=== PATIENT | female | born 1980 | race Caucasian/White ===

== ENCOUNTER 2017-09-20 12:27 | Emergency (ER) | payer MEDICAID, BC ==
[2017-09-20] MEDS: ONDANSETRON 4 MG INJ IV (17:05)
[2017-09-20] MEDS: HYDROmorphONE 1 MG/ML SYG IV ×2 (17:05→19:46)
[2017-09-20 17:18] LABS: ADD MAN DIFF? NO
[2017-09-20 17:23] LABS: BASOPHIL # 0.1 10^3/ul (0.0-0.1); BASOPHILS % 0.5 % (0.0-2.0); EOSINOPHILS # 0.4 10^3/ul (0.0-0.5); EOSINOPHILS % 2.5 % (0.0-7.0); HEMOGLOBIN 14.3 g/dl (12.0-16.0); LYMPHOCYTES # 3.5 10^3/ul (0.8-2.9); LYMPHOCYTES % 23.3 % (15.0-51.0); MEAN CORPUSCULAR HEMOGLOBIN 27.8 pg (29.0-33.0); MEAN CORPUSCULAR HGB CONC 32.5 g/dl (32.0-37.0); MEAN CORPUSCULAR VOLUME 85.4 fl (82.0-101.0); MEAN PLATELET VOLUME 9.9 fl (7.4-10.4); MONOCYTE # 0.8 10^3/ul (0.3-0.9); NEUTROPHIL # 10.2 10^3/ul (1.6-7.5); NEUTROPHILS % 68.2 % (39.0-77.0); PLATELET COUNT 418 10^3/UL (140-415); RED BLOOD COUNT 5.15 10^6/ul (4.20-5.40); RED CELL DISTRIBUTION WIDTH 14.1 % (11.5-14.5)
[2017-09-20 17:34] LABS: PROTIME 12.2 Sec (11.9-14.9)
[2017-09-20 17:35] LABS: PARTIAL THROMBOPLASTIN TIME 26.8 Sec (25.0-35.0)
[2017-09-20 17:39] LABS: ALANINE AMINOTRANSFERASE 47 IU/L (13-69); ALBUMIN/GLOBULIN RATIO 1.25; ALKALINE PHOSPHATASE 69 IU/L (42-121); ANION GAP 17 (8-16); ASPARTATE AMINO TRANSFERASE 37 IU/L (15-46); BILIRUBIN,INDIRECT 0.2 mg/dl (0-1.1); BILIRUBIN,TOTAL 0.2 mg/dl (0.2-1.3); BLOOD UREA NITROGEN 9 mg/dl (7-20); CALCIUM 10.1 mg/dl (8.4-10.2); CARBON DIOXIDE 26 mmol/L (21-31); CHLORIDE 103 mmol/L (97-110); CREATININE 0.67 mg/dl (0.44-1.00); GLUCOSE 102 mg/dl (70-220); POTASSIUM 4.1 mmol/L (3.5-5.1); SODIUM 142 mmol/L (135-144)
[2017-09-20 17:51] LABS: TROPONIN-I < 0.012 ng/ml (0.00-0.12)
[2017-09-20] MEDS: IOHEXOL 300MG/ML 150 ML BTL (17:57)
[2017-09-20] MEDS: SOD CHLORIDE 0.9% 100 ML (17:57)
== END 2017-09-20 20:07 | disposition home or self-care (01) ==
LOC: FTE 12:27
DX: K60.4 Rectal fistula (principal); K64.9 Unspecified hemorrhoids; R19.5 Other fecal abnormalities; R07.9 Chest pain, unspecified
CPT/HCPCS: 36415; 74177; 80053; 84484; 85025; 85610; 85730; 86850; 86900; 86901; 93005; 96374; 96375; 96376; 99285-25

== ENCOUNTER 2017-11-14 10:38 | Day surgery (SDC) | payer OTHER ==
[~2017-11-14 10:38] MED LIST: CEFAZOLIN 2 GM/50 ML (PMX) 50 ML IVPB; SOD CHLORIDE 0.9% 1,000 ML IV
[2017-11-14] MEDS ORDERED: PROPOFOL 20 ML (12:05)
[2017-11-14] MEDS ORDERED: FENTAnyl 50 MCG/ML VIAL ×2 (12:05→12:43)
[2017-11-14] MEDS ORDERED: CEFAZOLIN 1 GM INJ (12:05)
[2017-11-14] MEDS ORDERED: ROCURONIUM 50 MG INJ (12:05)
[2017-11-14] MEDS ORDERED: MIDAZOLAM 1 MG/ML 2 ML INJ (12:05)
[2017-11-14] MEDS ORDERED: METOCLOPRAMIDE 10 MG INJ (12:26)
[2017-11-14] MEDS ORDERED: KETOROLAC 30 MG INJ (12:26)
[2017-11-14] MEDS ORDERED: ONDANSETRON 4 MG INJ (12:26)
[2017-11-14] MEDS ORDERED: SUGAMMADEX SODIUM 200 MG/2 ML VIAL IV (12:26)
[2017-11-14] MEDS ORDERED: DEXAMETHASONE 4 MG/ML 1 ML INJ (12:26)
[2017-11-14 12:29] LABS: ADD MAN DIFF? NO
[2017-11-14 12:35] LABS: WHITE BLOOD COUNT 13.9 10^3/ul (4.8-10.8)
[2017-11-14 12:35] LABS: BASOPHIL # 0.1 10^3/ul (0.0-0.1); BASOPHILS % 0.6 % (0.0-2.0); EOSINOPHILS # 0.4 10^3/ul (0.0-0.5); EOSINOPHILS % 2.6 % (0.0-7.0); HEMATOCRIT 39.9 % (37.0-47.0); HEMOGLOBIN 12.9 g/dl (12.0-16.0); INR 0.94; LYMPHOCYTES # 3.4 10^3/ul (0.8-2.9); LYMPHOCYTES % 24.8 % (15.0-51.0); MEAN CORPUSCULAR HEMOGLOBIN 26.7 pg (29.0-33.0); MEAN CORPUSCULAR HGB CONC 32.3 g/dl (32.0-37.0); MEAN CORPUSCULAR VOLUME 82.4 fl (82.0-101.0); MEAN PLATELET VOLUME 9.9 fl (7.4-10.4); MONOCYTE # 0.8 10^3/ul (0.3-0.9); MONOCYTES % 5.8 % (0.0-11.0); NEUTROPHIL # 9.1 10^3/ul (1.6-7.5); NEUTROPHILS % 65.8 % (39.0-77.0); PLATELET COUNT 428 10^3/UL (140-415); PROTIME 12.7 Sec (11.9-14.9); RED BLOOD COUNT 4.84 10^6/ul (4.20-5.40); RED CELL DISTRIBUTION WIDTH 13.5 % (11.5-14.5)
[2017-11-14 12:36] LABS: HOLD TRANSMISSIONS 1; PARTIAL THROMBOPLASTIN TIME 28.5 Sec (25.0-35.0)
[2017-11-14 12:39] LABS: ALANINE AMINOTRANSFERASE 36 IU/L (13-69); ALBUMIN 4.3 g/dl (3.3-4.9); ALKALINE PHOSPHATASE 78 IU/L (42-121); ANION GAP 16 (8-16); ASPARTATE AMINO TRANSFERASE 33 IU/L (15-46); BILIRUBIN,INDIRECT 0.5 mg/dl (0-1.1); BILIRUBIN,TOTAL 0.5 mg/dl (0.2-1.3); CARBON DIOXIDE 25 mmol/L (21-31); CHLORIDE 104 mmol/L (97-110); GLUCOSE 102 mg/dl (70-220); TOTAL PROTEIN 7.6 g/dl (6.1-8.1)
[2017-11-14 12:43] LABS: POTASSIUM 4.4 mmol/L (3.5-5.1); SODIUM 141 mmol/L (135-144)
[2017-11-14] MEDS ORDERED: LABETALOL HCL 20MG INJ (12:43)
[2017-11-14 12:44] LABS: BLOOD UREA NITROGEN 6 mg/dl (7-20); CALCIUM 9.4 mg/dl (8.4-10.2); CREATININE 0.64 mg/dl (0.44-1.00)
[2017-11-14] MEDS: BUPIVACAINE 0.25% (MPF) 30 ML INJ (12:58)
[2017-11-14] MEDS ORDERED: OXYCODONE/ACETAMINOPHEN (5/325) TAB PO (13:30)
[2017-11-14] MEDS: HYDROmorphONE (0.2 MG/ML) 10ML SYG IV (13:30)
[2017-11-14] MEDS ORDERED: HYDROmorphONE (0.2 MG/ML) 10ML SYG IV ×2 (13:30)
[2017-11-14] MEDS ORDERED: EPHEDrine SULFATE 50 MG/5 ML SYG IV (13:30)
[2017-11-14] MEDS ORDERED: LABETALOL HCL 20MG INJ IV (13:30)
[2017-11-14] MEDS ORDERED: DIPHENHYDRAMINE 50 MG INJ IV (13:30)
[2017-11-14] MEDS ORDERED: hydrALAzine 20 MG INJ IV (13:30)
[2017-11-14] MEDS ORDERED: ONDANSETRON 4 MG INJ IV (13:30)
[2017-11-14] MEDS ORDERED: METOCLOPRAMIDE 10 MG INJ IV (13:30)
[2017-11-14] MEDS ORDERED: FENTAnyl 50 MCG/ML VIAL IV ×3 (13:30)
[2017-11-14] MEDS: HYDROCODONE/APAP (5/325) TAB PO (13:53)
== END 2017-11-14 14:44 | disposition home or self-care (01) ==
LOC: SDS 10:38
DX: K64.4 Residual hemorrhoidal skin tags (principal); K64.8 Other hemorrhoids; E11.9 Type 2 diabetes mellitus without complications; E66.9 Obesity, unspecified; Z68.37 Body mass index [BMI] 37.0-37.9, adult
CPT/HCPCS: 46261; 80053; 82962; 84703; 85025; 85610; 85730; 88304

== ENCOUNTER 2018-08-29 09:51 | Day surgery (SDC) | payer OTHER ==
[~2018-08-29 09:51] MED LIST changes: -CEFAZOLIN 2 GM/50 ML (PMX) 50 ML IVPB; +SEVOFLURANE 15 MIN; +SUGAMMADEX SODIUM 200 MG/2 ML VIAL IV
[2018-08-29 11:14] LABS: ADD MAN DIFF? NO
[2018-08-29 11:19] LABS: BASOPHIL # 0.1 10^3/ul (0.0-0.1); BASOPHILS % 0.6 % (0.0-2.0); EOSINOPHILS # 0.2 10^3/ul (0.0-0.5); EOSINOPHILS % 1.5 % (0.0-7.0); HEMATOCRIT 40.8 % (37.0-47.0); LYMPHOCYTES # 3.1 10^3/ul (0.8-2.9); LYMPHOCYTES % 30.8 % (15.0-51.0); MEAN CORPUSCULAR HEMOGLOBIN 25.2 pg (29.0-33.0); MEAN CORPUSCULAR HGB CONC 31.9 g/dl (32.0-37.0); MEAN CORPUSCULAR VOLUME 79.2 fl (82.0-101.0); MEAN PLATELET VOLUME 9.8 fl (7.4-10.4); MONOCYTE # 0.6 10^3/ul (0.3-0.9); MONOCYTES % 6.3 % (0.0-11.0); NEUTROPHILS % 60.3 % (39.0-77.0); PLATELET COUNT 406 10^3/UL (140-415); RED BLOOD COUNT 5.15 10^6/ul (4.20-5.40); RED CELL DISTRIBUTION WIDTH 14.7 % (11.5-14.5)
[2018-08-29 11:38] LABS: ALANINE AMINOTRANSFERASE 27 IU/L (13-69); ALBUMIN 4.6 g/dl (3.3-4.9); ALBUMIN/GLOBULIN RATIO 1.43; ALKALINE PHOSPHATASE 60 IU/L (42-121); ANION GAP 11 (5-13); ASPARTATE AMINO TRANSFERASE 31 IU/L (15-46); BILIRUBIN,INDIRECT 0.1 mg/dl (0-1.1); BILIRUBIN,TOTAL 0.1 mg/dl (0.2-1.3); BLOOD UREA NITROGEN 11 mg/dl (7-20); CALCIUM 9.8 mg/dl (8.4-10.2); CARBON DIOXIDE 25 mmol/L (21-31); CHLORIDE 103 mmol/L (97-110); CREATININE 0.61 mg/dl (0.44-1.00); Estimated GFR > 60 mL/min (>60); GLUCOSE 106 mg/dl (70-220); POTASSIUM 4.4 mmol/L (3.5-5.1); SODIUM 139 mmol/L (135-144); TOTAL PROTEIN 7.8 g/dl (6.1-8.1)
[2018-08-29 11:39] LABS: INR 0.89; PROTIME 12.1 Sec (11.9-14.9); PT RATIO 0.9
[2018-08-29 11:40] LABS: PARTIAL THROMBOPLASTIN TIME 27.3 Sec (23.0-35.0)
[2018-08-29] MEDS ORDERED: DIPHENHYDRAMINE 50 MG INJ IV (14:30)
[2018-08-29] MEDS ORDERED: FENTAnyl 50 MCG/ML VIAL (14:30)
[2018-08-29] MEDS ORDERED: OXYCODONE/ACETAMINOPHEN (5/325) TAB PO ×2 (14:30)
[2018-08-29] MEDS ORDERED: PROCHLORPERAZINE 10 MG INJ IV (14:30)
[2018-08-29] MEDS ORDERED: ROCURONIUM 50 MG INJ (14:30)
[2018-08-29] MEDS ORDERED: ONDANSETRON 4 MG INJ IV (14:30)
[2018-08-29] MEDS ORDERED: SUCCINYLCHOLINE CHLORIDE 100 MG/5 ML SYG IV (14:30)
[2018-08-29] MEDS ORDERED: LIDOCAINE 2% (SDV) 5 ML INJ (14:30)
[2018-08-29] MEDS ORDERED: MIDAZOLAM 1 MG/ML 2 ML INJ (14:30)
[2018-08-29] MEDS ORDERED: FENTAnyl 50 MCG/ML VIAL IV ×2 (14:30)
[2018-08-29] MEDS ORDERED: HYDROmorphONE 1 MG/5 ML IV SYRINGE IV ×2 (14:30)
[2018-08-29] MEDS ORDERED: PROPOFOL 20 ML (14:30)
[2018-08-29] MEDS ORDERED: CEFAZOLIN 1 GM INJ (14:45)
[2018-08-29] MEDS ORDERED: ONDANSETRON 4 MG INJ (14:45)
[2018-08-29] MEDS ORDERED: DEXAMETHASONE 4 MG/ML 5 ML INJ (14:45)
[2018-08-29] MEDS ORDERED: FAMOTIDINE 20 MG INJ (14:45)
[2018-08-29] MEDS: CEFAZOLIN 1 GM/50 ML (PMX) 50 ML IVPB (14:51)
[2018-08-29] MEDS ORDERED: BUPIVACAINE 0.5%/EPI (SDV) 30 ML INJ (14:58)
[2018-08-29] MEDS ORDERED: SUGAMMADEX SODIUM 200 MG/2 ML VIAL IV (15:01)
[2018-08-29] MEDS: MEPERIDINE 25 MG INJ IV (15:52)
[2018-08-29] MEDS: FENTAnyl 50 MCG/ML VIAL IV (15:53)
[2018-08-29] MEDS: HYDROmorphONE 1 MG/5 ML IV SYRINGE IV (15:53)
== END 2018-08-29 16:45 | disposition home or self-care (01) ==
LOC: SDS 09:51
DX: R10.2 Pelvic and perineal pain (principal)
CPT/HCPCS: 45330; 71045; 80053; 82962; 85025; 85610; 85730; 93005

== ENCOUNTER 2019-04-05 11:31 | Emergency (ER) | payer OTHER ==
[2019-04-05] MEDS: ONDANSETRON 4 MG INJ IV (12:18)
[2019-04-05] MEDS: morphine 2 MG INJ IV (12:18)
[2019-04-05] MEDS: SOD CHLORIDE 0.9% 1,000 ML IV (12:18)
[2019-04-05 12:20] LABS: ADD MAN DIFF? NO
[2019-04-05 12:23] LABS: WHITE BLOOD COUNT 9.9 10^3/ul (4.8-10.8)
[2019-04-05 12:23] LABS: BASOPHIL # 0.1 10^3/ul (0.0-0.1); BASOPHILS % 0.6 % (0.0-2.0); EOSINOPHILS # 0.2 10^3/ul (0.0-0.5); EOSINOPHILS % 1.5 % (0.0-7.0); HEMATOCRIT 35.7 % (37.0-47.0); LYMPHOCYTES # 3.2 10^3/ul (0.8-2.9); LYMPHOCYTES % 32.6 % (15.0-51.0); MEAN CORPUSCULAR HEMOGLOBIN 23.5 pg (29.0-33.0); MEAN CORPUSCULAR HGB CONC 30.8 g/dl (32.0-37.0); MEAN CORPUSCULAR VOLUME 76.3 fl (82.0-101.0); MEAN PLATELET VOLUME 9.5 fl (7.4-10.4); MONOCYTE # 0.8 10^3/ul (0.3-0.9); MONOCYTES % 8.3 % (0.0-11.0); NEUTROPHIL # 5.6 10^3/ul (1.6-7.5); NEUTROPHILS % 56.5 % (39.0-77.0); PLATELET COUNT 401 10^3/UL (140-415); RED BLOOD COUNT 4.68 10^6/ul (4.20-5.40)
[2019-04-05 12:35] LABS: ADD UMIC YES; UR ASCORBIC ACID 20 mg/dL (NEGATIVE); UR BACTERIA FEW /HPF (NONE SEEN); UR BILIRUBIN (Dip) NEGATIVE (NEGATIVE); UR BLOOD (Dip) NEGATIVE (NEGATIVE); UR CLARITY CLOUDY (CLEAR); UR COLOR AMBER (YELLOW); UR GLUCOSE (Dip) NEGATIVE (NEGATIVE); UR KETONES (Dip) NEGATIVE (NEGATIVE); UR LEUKOCYTE ESTERASE (Dip) NEGATIVE Leu/ul (NEGATIVE); UR MUCUS FEW /HPF (NONE SEEN); UR NITRITE (Dip) NEGATIVE (NEGATIVE); UR RBC 1 /HPF (0-5); UR SPECIFIC GRAVITY (Dip) 1.013 (1.003-1.030); UR SQUAMOUS EPITHELIAL CELL FEW /HPF (FEW); UR TOTAL PROTEIN (Dip) NEGATIVE (NEGATIVE); UR UROBILINOGEN (Dip) NEGATIVE (NEGATIVE); UR WBC 2 /HPF (0-5)
[2019-04-05 12:42] LABS: ALANINE AMINOTRANSFERASE 30 IU/L (13-69); ALBUMIN/GLOBULIN RATIO 1.21; ALKALINE PHOSPHATASE 53 IU/L (42-121); ANION GAP 8 (5-13); ASPARTATE AMINO TRANSFERASE 23 IU/L (15-46); BILIRUBIN,INDIRECT 0.3 mg/dl (0-1.1); BILIRUBIN,TOTAL 0.3 mg/dl (0.2-1.3); BLOOD UREA NITROGEN 8 mg/dl (7-20); CALCIUM 9.4 mg/dl (8.4-10.2); CARBON DIOXIDE 27 mmol/L (21-31); CHLORIDE 103 mmol/L (97-110); CREATININE 0.62 mg/dl (0.44-1.00); Estimated GFR > 60 mL/min (>60); GLUCOSE 106 mg/dl (70-220); POTASSIUM 3.8 mmol/L (3.5-5.1); SODIUM 138 mmol/L (135-144); TOTAL PROTEIN 7.3 g/dl (6.1-8.1)
[2019-04-05] MEDS: SOD CHLORIDE 0.9% 100 ML (13:15)
[2019-04-05] MEDS: IOHEXOL 300MG/ML 150 ML BTL (13:15)
== END 2019-04-05 14:29 | disposition home or self-care (01) ==
LOC: FTE 11:31
DX: K62.89 Other specified diseases of anus and rectum (principal); Z79.84 Long term (current) use of oral hypoglycemic drugs
CPT/HCPCS: 36415; 74177; 80053; 81001; 81025; 85025; 96361; 96374; 96375; 99285-25